=== PATIENT | male | born 1965 | race Two or more races ===

== ENCOUNTER 2023-09-10 17:49 | Inpatient (IN) | payer OTHER ==
[2023-09-10 19:16] VITALS: BMI 20.1
[2023-09-10] MEDS ORDERED: BENZONATATE 200 MG CAPSULE PO PRN (22:13)
[2023-09-10] MEDS ORDERED: NALOXONE HCL (KLOXXADO) 8 MG SPRAY NS PRN (22:13)
[2023-09-10] MEDS ORDERED: IBUPROFEN 400 MG TABLET (FP) PO PRN (22:13)
[2023-09-10] MEDS ORDERED: BENZOCAINE/MENTHOL (CHLORASEPTIC ) LOZENGE MM PRN (22:13)
[2023-09-10] MEDS ORDERED: POLYETHYLENE GLYCOL (HEALTHYLAX) 3350 17 GM PACKET PO PRN (22:13)
[2023-09-10] MEDS ORDERED: ONDANSETRON *ODT* 4 MG TABLET SL PRN (22:13)
[2023-09-10] MEDS ORDERED: IBUPROFEN 600 MG TABLET (FP) PO PRN (22:13)
[2023-09-10] MEDS ORDERED: MAG HYDROX/AL HYDROX/SIMETH 30 ML UNIT-DOSE CUP PO PRN (22:13)
[2023-09-10] MEDS ORDERED: ACETAMINOPHEN 325 MG TABLET (FP) PO PRN (22:13)
[2023-09-10] MEDS ORDERED: BISMUTH SUBSALICYLATE 524 MG/30 ML PO PRN (22:13)
[2023-09-10] MEDS ORDERED: NALOXONE HCL 0.4 MG/ML VIAL IM PRN (22:13)
[2023-09-10] MEDS ORDERED: DICYCLOMINE HCL 10 MG CAPSULE PO PRN (22:13)
[2023-09-10] MEDS ORDERED: guaiFENesin 600 MG TABLET.ER (FP) PO PRN (22:13)
[2023-09-10] MEDS ORDERED: LOPERAMIDE HCL 2 MG CAPSULE PO PRN (22:13)
[2023-09-10] MEDS ORDERED: MAGNESIUM HYDROX 2400MG/30ML ORAL SUSPENSION 30 ML CUP PO PRN (22:13)
[2023-09-11] MEDS ORDERED: chlordiazePOXIDE HCL 25 MG CAPSULE PO PRN (09:30)
[2023-09-11] MEDS: chlordiazePOXIDE HCL 25 MG CAPSULE PO SCH ×3 (10:43→22:33)
[2023-09-11] MEDS: PRENATAL VITAMINS W/ FOLIC ACID TABLET (FP) PO SCH (10:43)
[2023-09-11] MEDS: METHOCARBAMOL 500 MG TABLET PO PRN (10:43)
[2023-09-11] MEDS: hydrOXYzine PAMOATE 25 MG CAPSULE (FP) PO PRN (10:43)
[2023-09-11 11:57] LABS: PH,URINE 5.5 (5.0-8.0); URINE APPEARANCE CLEAR; URINE BILIRUBIN NEGATIVE (NEGATIVE); URINE COLOR DK YELLOW; URINE GLUCOSE (UA) NEGATIVE (NEGATIVE); URINE KETONE TRACE (NEGATIVE); URINE LEUK ESTERASE NEGATIVE (NEGATIVE); URINE NITRITE NEGATIVE (NEGATIVE); URINE PROTEIN NEGATIVE (NEGATIVE); URINE UROBILINOGEN 0.2 mg/dL (0.2-1.0)
[2023-09-11 12:25] LABS: CHLORIDE 104 mmol/L (98-107); POTASSIUM 4.1 mmol/L (3.5-5.1); SODIUM 141 mmol/L (136-145)
[2023-09-11 12:41] LABS: ALBUMIN 3.4 g/dl (3.4-5.0); ANION GAP 6 mmol/L (4-13); BLOOD UREA NITROGEN 7.6 mg/dL (7-18); CALCIUM 9.1 mg/dL (8.5-10.1); CO2 31 mmol/L (21-32)
[2023-09-11 12:42] LABS: GLUCOSE,RANDOM 123 mg/dL (74-106)
[2023-09-11 12:44] LABS: CREATININE 0.7 mg/dL (0.55-1.3); SGOT/AST 16 U/L (15-37)
[2023-09-11 12:45] LABS: SGPT/ALT 16 U/L (13-61)
[2023-09-11 12:46] LABS: BILIRUBIN,TOTAL 0.8 mg/dL (0.2-1)
[2023-09-11 12:47] LABS: HEMATOCRIT 43.5 % (35.4-49); HEMOGLOBIN 13.8 GM/dL (11.7-16.9); MCH 27.5 pg (25.7-33.7); MCHC 31.8 g/dl (32.0-35.9); MEAN CELL VOLUME 86.5 fl (80-96); MEAN PLT VOLUME 8.6 fl (7.5-11.1); PLATELET COUNT 269 10^3/uL (134-434); RBC 5.03 M/mm3 (4.00-5.60); RDW 16.7 % (11.9-15.9)
[2023-09-11 12:47] LABS: ALK PHOS 152 U/L (45-117)
[2023-09-11 12:48] LABS: TOT PROT 7.2 g/dl (6.4-8.2)
[2023-09-11] MEDS: CITALOPRAM HYDROBROMIDE 20 MG TABLET PO SCH (14:36)
[2023-09-11] MEDS ORDERED: QUEtiapine FUMARATE 50 MG TABLET PO SCH (22:00)
[2023-09-11] MEDS ORDERED: THIAMINE HCL 100 MG TABLET (FP) PO SCH (22:00)
[2023-09-11] MEDS ORDERED: MELATONIN 5 MG TABLETS PO SCH (22:00)
[2023-09-11] MEDS: risperiDONE 2 MG TABLET PO SCH (22:32)
[2023-09-11] MEDS: DIVALPROEX SODIUM 500 MG TABLET E.C. PO SCH (22:33)
[2023-09-12] MEDS: chlordiazePOXIDE HCL 25 MG CAPSULE PO SCH ×2 (05:50→10:37)
[2023-09-12 09:37] VITALS: BP 117/67; PULSE 81; RESP 18; TEMP 97.1
[2023-09-12] MEDS: CITALOPRAM HYDROBROMIDE 20 MG TABLET PO SCH (10:35)
[2023-09-12] MEDS: METHOCARBAMOL 500 MG TABLET PO PRN (10:35)
[2023-09-12] MEDS: PRENATAL VITAMINS W/ FOLIC ACID TABLET (FP) PO SCH (10:35)
[2023-09-12] MEDS: risperiDONE 2 MG TABLET PO SCH (10:35)
[2023-09-12] MEDS: hydrOXYzine PAMOATE 25 MG CAPSULE (FP) PO PRN (10:35)
[2023-09-12] MEDS: DIVALPROEX SODIUM 500 MG TABLET E.C. PO SCH (10:35)
[2023-09-13] MEDS ORDERED: chlordiazePOXIDE HCL 10 MG CAPSULE PO PRN
[2023-09-13] MEDS ORDERED: chlordiazePOXIDE HCL 10 MG CAPSULE PO SCH (05:00)
[2023-09-14] MEDS ORDERED: chlordiazePOXIDE HCL 10 MG CAPSULE PO SCH (05:00)
[2023-09-15] MEDS ORDERED: chlordiazePOXIDE HCL 10 MG CAPSULE PO ONE (05:00)
== END 2023-09-12 11:08 | disposition left against medical advice (07) | DRG 770 ==
LOC: YASAS 17:49 → UNDOADMIN 23:00 → Y6N 23:00 → UNDODISIN 09-12 11:08
PROVIDERS: ADMIT Allergy & Immunology; ATTEND Surgery
PROC: HZ2ZZZZ Detoxification Services for Substance Abuse Treatment (ICD-10-PCS; principal; 2023-09-10)
DX: F10.230 Alcohol dependence with withdrawal, uncomplicated (principal); F12.20 Cannabis dependence, uncomplicated; F25.0 Schizoaffective disorder, bipolar type; F10.282 Alcohol dependence with alcohol-induced sleep disorder; R63.4 Abnormal weight loss; Z68.20 Body mass index [BMI] 20.0-20.9, adult; Z87.891 Personal history of nicotine dependence; Z28.311 Partially vaccinated for COVID-19; Z59.01 Sheltered homelessness
CPT/HCPCS: 36415; 80053; 80307; 81003; 85025; 85027; 86780; 87635; 93005; 93010; 99281-25

== ENCOUNTER 2024-05-27 09:39 | Inpatient (IN) | payer OTHER ==
[2024-05-27 10:49] VITALS: BMI 20.9
[2024-05-27] MEDS ORDERED: MAGNESIUM HYDROX 2400MG/30ML ORAL SUSPENSION 30 ML CUP PO PRN (11:24)
[2024-05-27] MEDS ORDERED: MAG HYDROX/AL HYDROX/SIMETH 30 ML UNIT-DOSE CUP PO PRN (11:24)
[2024-05-27] MEDS ORDERED: LOPERAMIDE HCL 2 MG CAPSULE PO PRN (11:24)
[2024-05-27] MEDS ORDERED: DICYCLOMINE HCL 10 MG CAPSULE PO PRN (11:24)
[2024-05-27] MEDS ORDERED: POLYETHYLENE GLYCOL (HEALTHYLAX) 3350 17 GM PACKET PO PRN (11:24)
[2024-05-27] MEDS ORDERED: guaiFENesin 600 MG TABLET.ER (FP) PO PRN (11:24)
[2024-05-27] MEDS ORDERED: IBUPROFEN 400 MG TABLET (FP) PO PRN (11:24)
[2024-05-27] MEDS ORDERED: ACETAMINOPHEN 325 MG TABLET (FP) PO PRN (11:24)
[2024-05-27] MEDS ORDERED: BENZONATATE 200 MG CAPSULE PO PRN (11:24)
[2024-05-27] MEDS ORDERED: BISMUTH SUBSALICYLATE 262 MG/15 ML BTL PO PRN (11:24)
[2024-05-27] MEDS ORDERED: NALOXONE HCL 0.4 MG/ML VIAL IM PRN (11:24)
[2024-05-27] MEDS ORDERED: IBUPROFEN 600 MG TABLET (FP) PO PRN (11:24)
[2024-05-27] MEDS ORDERED: BENZOCAINE/MENTHOL (CHLORASEPTIC ) LOZENGE MM PRN (11:24)
[2024-05-27] MEDS ORDERED: NALOXONE (NARCAN) HCL 4 MG/0.1 ML SPRAY NS PRN (11:24)
[2024-05-27] MEDS ORDERED: ONDANSETRON *ODT* 4 MG TABLET SL PRN (11:24)
[2024-05-27] MEDS ORDERED: PRENATAL VITAMINS W/ FOLIC ACID TABLET (FP) PO ONE (11:57)
[2024-05-27] MEDS: PRENATAL VITAMINS W/ FOLIC ACID TABLET (FP) PO SCH (11:59)
[2024-05-27] MEDS: hydrOXYzine PAMOATE 25 MG CAPSULE (FP) PO PRN (22:23)
[2024-05-27] MEDS: METHOCARBAMOL 500 MG TABLET PO PRN (22:23)
[2024-05-27] MEDS: MELATONIN 5 MG TABLETS PO SCH (22:23)
[2024-05-27] MEDS: THIAMINE 100 MG TABLET PO SCH (22:23)
[2024-05-28 11:43] LABS: HEMATOCRIT 37.7 % (35.4-49); HEMOGLOBIN 12.6 GM/dL (11.7-16.9); MCH 29.6 pg (25.7-33.7); MCHC 33.3 g/dl (32.0-35.9); MEAN CELL VOLUME 88.7 fl (80-96); MEAN PLT VOLUME 8.9 fl (7.5-11.1); PLATELET COUNT 288 10^3/uL (134-434); RBC 4.25 M/mm3 (4.00-5.60); RDW 14.3 % (11.9-15.9); WHITE BLOOD COUNT 3.5 K/mm3 (4.0-10.0)
[2024-05-28 11:48] LABS: POTASSIUM 3.9 mmol/L (3.5-5.1)
[2024-05-28 11:53] LABS: ALBUMIN 3.1 g/dl (3.4-5.0); CALCIUM 8.6 mg/dL (8.5-10.1)
[2024-05-28 11:54] LABS: BLOOD UREA NITROGEN 5.8 mg/dL (7-18)
[2024-05-28 11:57] LABS: CREATININE 0.8 mg/dL (0.55-1.3)
[2024-05-28 11:58] LABS: BILIRUBIN,TOTAL 0.4 mg/dL (0.2-1); TOT PROT 6.8 g/dl (6.4-8.2)
[2024-05-28] MEDS: CITALOPRAM HYDROBROMIDE 20 MG TABLET PO SCH (13:05)
[2024-05-28] MEDS: risperiDONE 2 MG TABLET PO SCH (13:06)
[2024-05-28] MEDS: DIVALPROEX SODIUM 500 MG TABLET E.C. PO SCH (13:06)
[2024-05-28] MEDS: diazePAM 5 MG TABLET PO SCH (17:39)
[2024-05-28] MEDS ORDERED: QUEtiapine FUMARATE 50 MG TABLET PO SCH (22:00)
[2024-05-28] MEDS: risperiDONE 1 MG TABLET PO SCH (22:43)
[2024-05-29] MEDS: diazePAM 5 MG TABLET PO SCH (05:32)
[2024-05-30] MEDS: diazePAM 5 MG TABLET PO SCH (06:47)
[2024-05-31] MEDS: diazePAM 5 MG TABLET PO ONE (05:42)
[2024-05-31 08:54] VITALS: BP 114/74; PULSE 87; RESP 18; TEMP 97.7
== END 2024-05-31 10:00 | disposition home or self-care (01) | DRG 775 ==
LOC: YASAS 09:39 → Y6N 11:57
PROVIDERS: ADMIT Allergy & Immunology; ATTEND Surgery
PROC: HZ2ZZZZ Detoxification Services for Substance Abuse Treatment (ICD-10-PCS; principal; 2024-05-27)
DX: F10.230 Alcohol dependence with withdrawal, uncomplicated (principal); F12.20 Cannabis dependence, uncomplicated; F25.0 Schizoaffective disorder, bipolar type; R73.03 Prediabetes; R63.4 Abnormal weight loss; Z68.20 Body mass index [BMI] 20.0-20.9, adult
CPT/HCPCS: 36415; 80053; 80305; 80307; 82962; 83036; 85027; 86780

== ENCOUNTER 2024-06-23 22:29 | Inpatient (IN) | payer OTHER ==
[2024-06-23 23:42] VITALS: BMI 17.4
[2024-06-24] MEDS ORDERED: IBUPROFEN 600 MG TABLET (FP) PO PRN (05:00)
[2024-06-24] MEDS ORDERED: NALOXONE HCL 0.4 MG/ML VIAL IM PRN (05:00)
[2024-06-24] MEDS ORDERED: IBUPROFEN 400 MG TABLET (FP) PO PRN (05:00)
[2024-06-24] MEDS ORDERED: guaiFENesin 600 MG TABLET.ER (FP) PO PRN (05:00)
[2024-06-24] MEDS ORDERED: BISMUTH SUBSALICYLATE 524 MG/30 ML PO PRN (05:00)
[2024-06-24] MEDS ORDERED: BENZONATATE 200 MG CAPSULE PO PRN (05:00)
[2024-06-24] MEDS ORDERED: MAGNESIUM HYDROX 2400MG/30ML ORAL SUSPENSION 30 ML CUP PO PRN (05:00)
[2024-06-24] MEDS ORDERED: DICYCLOMINE HCL 10 MG CAPSULE PO PRN (05:00)
[2024-06-24] MEDS ORDERED: ONDANSETRON *ODT* 4 MG TABLET SL PRN (05:00)
[2024-06-24] MEDS ORDERED: BENZOCAINE/MENTHOL (CHLORASEPTIC ) LOZENGE MM PRN (05:00)
[2024-06-24] MEDS ORDERED: LOPERAMIDE HCL 2 MG CAPSULE PO PRN (05:00)
[2024-06-24] MEDS ORDERED: NALOXONE (NARCAN) HCL 4 MG/0.1 ML SPRAY NS PRN (05:00)
[2024-06-24] MEDS ORDERED: POLYETHYLENE GLYCOL (HEALTHYLAX) 3350 17 GM PACKET PO PRN (05:00)
[2024-06-24] MEDS ORDERED: MAG HYDROX/AL HYDROX/SIMETH 30 ML UNIT-DOSE CUP PO PRN (05:00)
[2024-06-24] MEDS ORDERED: ACETAMINOPHEN 325 MG TABLET (FP) PO PRN (05:00)
[2024-06-24] MEDS ORDERED: LORazepam 1 MG TABLET PO PRN (09:34)
[2024-06-24] MEDS: PRENATAL VITAMINS W/ FOLIC ACID TABLET (FP) PO SCH (10:29)
[2024-06-24] MEDS: NALTREXONE HCL 50 MG TABLET PO SCH (10:29)
[2024-06-24] MEDS: LORazepam 1 MG TABLET PO SCH (10:29)
[2024-06-24] MEDS: MELATONIN 5 MG TABLETS PO SCH (22:22)
[2024-06-24] MEDS: THIAMINE 100 MG TABLET PO SCH (22:22)
[2024-06-25] MEDS ORDERED: LORazepam 1 MG TABLET PO SCH (05:00)
[2024-06-25] MEDS: LORazepam 0.5 MG TABLET PO SCH (05:39)
[2024-06-25] MEDS: METHOCARBAMOL 500 MG TABLET PO PRN (10:07)
[2024-06-25] MEDS: hydrOXYzine PAMOATE 25 MG CAPSULE (FP) PO PRN (10:07)
[2024-06-26] MEDS ORDERED: LORazepam 0.5 MG TABLET PO SCH (05:00)
[2024-06-26 06:52] VITALS: RESP 16
[2024-06-26] MEDS: LORazepam 0.5 MG TABLET PO SCH (06:52)
[2024-06-26 09:08] VITALS: BP 113/69; PULSE 61; TEMP 96.9
[2024-06-27] MEDS ORDERED: LORazepam 0.5 MG TABLET PO ONE (05:00)
== END 2024-06-26 14:55 | disposition home or self-care (01) | DRG 775 ==
LOC: YASAS 22:29 → Y6N 06-24 06:19
PROVIDERS: ADMIT Allergy & Immunology; ATTEND Surgery
PROC: HZ2ZZZZ Detoxification Services for Substance Abuse Treatment (ICD-10-PCS; principal; 2024-06-24)
DX: F10.230 Alcohol dependence with withdrawal, uncomplicated (principal); F31.9 Bipolar disorder, unspecified; F41.9 Anxiety disorder, unspecified; F25.9 Schizoaffective disorder, unspecified; R94.5 Abnormal results of liver function studies; Z56.0 Unemployment, unspecified; Z59.00 Homelessness unspecified
CPT/HCPCS: 80305; 80307; 93005; 93010

== ENCOUNTER 2024-08-03 14:04 | Inpatient (IN) | payer OTHER ==
[2024-08-03 14:44] VITALS: BMI 21.4
[2024-08-03] MEDS ORDERED: BENZOCAINE/MENTHOL (CHLORASEPTIC ) LOZENGE MM PRN (16:11)
[2024-08-03] MEDS ORDERED: guaiFENesin 600 MG TABLET.ER (FP) PO PRN (16:11)
[2024-08-03] MEDS ORDERED: BENZONATATE 200 MG CAPSULE PO PRN (16:11)
[2024-08-03] MEDS ORDERED: DICYCLOMINE HCL 10 MG CAPSULE PO PRN (16:11)
[2024-08-03] MEDS ORDERED: IBUPROFEN 400 MG TABLET (FP) PO PRN (16:11)
[2024-08-03] MEDS ORDERED: ONDANSETRON *ODT* 4 MG TABLET SL PRN (16:11)
[2024-08-03] MEDS ORDERED: MAG HYDROX/AL HYDROX/SIMETH 30 ML UNIT-DOSE CUP PO PRN (16:11)
[2024-08-03] MEDS ORDERED: POLYETHYLENE GLYCOL (HEALTHYLAX) 3350 17 GM PACKET PO PRN (16:11)
[2024-08-03] MEDS ORDERED: MAGNESIUM HYDROX 2400MG/30ML ORAL SUSPENSION 30 ML CUP PO PRN (16:11)
[2024-08-03] MEDS ORDERED: hydrOXYzine PAMOATE 25 MG CAPSULE (FP) PO PRN (16:11)
[2024-08-03] MEDS ORDERED: BISMUTH SUBSALICYLATE 524 MG/30 ML PO PRN (16:11)
[2024-08-03] MEDS ORDERED: NALOXONE HCL 0.4 MG/ML VIAL IM PRN (16:11)
[2024-08-03] MEDS ORDERED: LOPERAMIDE HCL 2 MG CAPSULE PO PRN (16:11)
[2024-08-03] MEDS ORDERED: chlordiazePOXIDE HCL 25 MG CAPSULE PO PRN (16:11)
[2024-08-03] MEDS ORDERED: NALOXONE (NARCAN) HCL 4 MG/0.1 ML SPRAY NS PRN (16:11)
[2024-08-03] MEDS ORDERED: IBUPROFEN 600 MG TABLET (FP) PO ONE (16:42)
[2024-08-03] MEDS: METHOCARBAMOL 500 MG TABLET PO PRN (20:04)
[2024-08-03] MEDS: ACETAMINOPHEN 325 MG TABLET (FP) PO PRN (20:04)
[2024-08-03] MEDS: PRENATAL VITAMINS W/ FOLIC ACID TABLET (FP) PO SCH (20:06)
[2024-08-03] MEDS: THIAMINE 100 MG TABLET PO SCH (22:13)
[2024-08-03] MEDS: chlordiazePOXIDE HCL 25 MG CAPSULE PO SCH (22:13)
[2024-08-03] MEDS: MELATONIN 5 MG TABLETS PO SCH (22:13)
[2024-08-04] MEDS: IBUPROFEN 600 MG TABLET (FP) PO PRN (06:03)
[2024-08-04] MEDS: NICOTINE 14 MG/24 HOURS TOPICAL PATCH TD SCH (10:12)
[2024-08-04 14:22] LABS: HEMATOCRIT 37.8 % (35.4-49); MCH 28.2 pg (25.7-33.7); MCHC 31.7 g/dl (32.0-35.9); MEAN CELL VOLUME 88.7 fl (80-96); MEAN PLT VOLUME 8.4 fl (7.5-11.1); PLATELET COUNT 379 10^3/uL (134-434); RBC 4.26 M/mm3 (4.00-5.60); RDW 14.2 % (11.9-15.9); WHITE BLOOD COUNT 3.6 K/mm3 (4.0-10.0)
[2024-08-04 14:42] LABS: CHLORIDE 102 mmol/L (98-107); POTASSIUM 4.5 mmol/L (3.5-5.1); SODIUM 137 mmol/L (136-145)
[2024-08-04 15:02] LABS: ANION GAP 4 mmol/L (4-13); BLOOD UREA NITROGEN 10.7 mg/dL (7-18); CALCIUM 9.6 mg/dL (8.5-10.1); CO2 31 mmol/L (21-32); GLUCOSE,RANDOM 193 mg/dL (74-106)
[2024-08-04 15:05] LABS: CREATININE 0.7 mg/dL (0.55-1.3); SGOT/AST 12 U/L (15-37); SGPT/ALT 12 U/L (13-61)
[2024-08-04 15:07] LABS: TOT PROT 6.8 g/dl (6.4-8.2)
[2024-08-04 15:08] LABS: ALK PHOS 107 U/L (45-117)
[2024-08-04 15:15] LABS: BILIRUBIN,TOTAL 0.4 mg/dL (0.2-1)
[2024-08-04] MEDS: DIVALPROEX SODIUM 250 MG TABLET E.C. PO SCH (22:44)
[2024-08-04] MEDS: QUEtiapine FUMARATE 50 MG TABLET PO SCH (22:44)
[2024-08-05] MEDS: chlordiazePOXIDE HCL 25 MG CAPSULE PO SCH (06:00)
[2024-08-05] MEDS: QUEtiapine FUMARATE 50 MG TABLET PO SCH (10:38)
[2024-08-05 17:47] VITALS: RESP 18
[2024-08-06] MEDS ORDERED: chlordiazePOXIDE HCL 10 MG CAPSULE PO PRN
[2024-08-06] MEDS: chlordiazePOXIDE HCL 10 MG CAPSULE PO SCH (05:45)
[2024-08-06 09:07] VITALS: BP 114/77; PULSE 68; TEMP 98.3
[2024-08-07] MEDS ORDERED: chlordiazePOXIDE HCL 10 MG CAPSULE PO SCH (05:00)
[2024-08-08] MEDS ORDERED: chlordiazePOXIDE HCL 10 MG CAPSULE PO ONE (05:00)
== END 2024-08-06 09:16 | disposition home or self-care (01) | DRG 774 ==
LOC: YASAS 14:04 → Y3N 18:58
PROVIDERS: ADMIT Allergy & Immunology; ATTEND Surgery
PROC: HZ2ZZZZ Detoxification Services for Substance Abuse Treatment (ICD-10-PCS; principal; 2024-08-03)
DX: F10.230 Alcohol dependence with withdrawal, uncomplicated (principal); F14.20 Cocaine dependence, uncomplicated; F12.20 Cannabis dependence, uncomplicated; F31.9 Bipolar disorder, unspecified; F25.0 Schizoaffective disorder, bipolar type; F41.9 Anxiety disorder, unspecified; G47.00 Insomnia, unspecified; R74.8 Abnormal levels of other serum enzymes; Z59.01 Sheltered homelessness
CPT/HCPCS: 36415; 80053; 80305; 80307; 85027; 86780; 93005; 93010